=== PATIENT | female | born 1980 | race Caucasian/White ===

== ENCOUNTER 2025-08-06 09:02 | Emergency (ER) | payer OTHER, SELFPAY ==
[2025-08-06 09:09] VITALS: BP 157/85; PULSE 68; TEMP 36.8; O2SAT 98; BMI 32.9
--- NOTE | 2025-08-06 09:18 | ECG_ITS ---
The [facility] Test Date: 2025-08-06 Pat Name: VITO HAYES Department: Room: - Gender: Female Poker Supervisor: : 1980 Requested By: 1030 Order Number: [id number] Reading MD: CORI CARROLL M.D. Measurements Intervals [place] Rate: 74 P: 47 IA: 142 QRS: 71 QRSD: 86 T: 12 QT: 384 QTc: 412 Interpretive Statements 1100 Sinus rhythm 1102 Sinus arrhythmia [address] depression [address] & Tw[place] abnormality 9150 abnormal ECG No previous ECG available for comparison Electronically Signed On 08-06-2025 18:00:15 EDT by CORI CARROLL M.D.
--- NOTE | 2025-08-06 09:18 | ED_ITS ---
HPI HPI - General Adult General Chief complaint: Abdominal Pain Stated complaint: VOMITNG POST OP Time Seen by Provider: 08/06/25 09:05 Source: patient Mode of arrival: walk-in Limitations: no limitations History of Present Illness HPI narrative: 45-year-old female presented to the emergency department for nausea and vomiting. 1 week ago today she had laparoscopic appendectomy at another hospital. She states that this pain and this vomiting started today and she points to her epigastric area. She went to the hospital where she had her appendectomy but the wait was going to be too long so she left there. No hematemesis or fever. Related Data Home Medications ?Medication ?Instructions ?Recorded ?Confirmed buprenorphine 96 mg/0.27 mL mg subcut 08/06/25 solution,exten.rel.subcutaneous syringe (Brixadi Monthly) Allergies Allergy/AdvReac Type Severity Reaction Status Date / Time Penicillins Allergy Mild Rash Verified 08/06/25 09:09 Opioid HPI Opioid Management Most Recent Opioid Data: Last Pain Scale 10 Today, 13:27 Last MAR Pain Assessment Today, 13:27 Ur Phencyclidine Scrn, (NEGATIVE) Negative Today, 10:35 Review of Systems ROS Narrative A ten point review of systems is negative except as noted above. Exam Narrative Exam Narrative: Nurses note and vital signs reviewed and patient is not hypoxic. General:The patient appears uncomfortable. She is nearly continuously moving around on the bed. Skin:Warm, dry, no pallor noted.There is no rash noted. Head:Normocephalic, atraumatic Eye: Normal conjunctiva, no drainage Ears, Nose, Mouth, and Throat: oral mucosa is moist. Nares patent. Cardiovascular:Regular Rate and Rhythm Respiratory:Patient is in no distress, no accessory muscle use, lungs are clear to auscultation, no wheezing, rales or rhonchi Back:non-tender GI: Soft and nondistended. She has tenderness in her epigastric area and there are bruises in the lower abdomen near her laparoscopy sites. Musculoskeletal: The patient has no evidence of calf tenderness, no pitting edema, symmetrical pulses noted bilaterally Neurological:A&O, normal speech Psychiatric:Cooperative Constitutional Vital Signs, click to edit/add: Last Vital Signs Temp 98.2 F 08/06/25 09:09 Pulse 78 08/06/25 11:50 Resp 18 08/06/25 11:50 BP 116/66 09/24/25 11:50 Pulse Ox 98 08/06/25 11:50 O2 Del Method Room Air 08/06/25 09:09 Course Vital Signs Vital signs: Vital Signs Temperature 98.2 F 08/06/25 09:09 Pulse Rate 68 08/06/25 09:09 Respiratory Rate 24 H 08/06/25 09:09 Blood Pressure 157/85 H 08/06/25 09:09 Pulse Oximetry 98 08/06/25 09:09 Oxygen Delivery Method Room Air 08/06/25 09:09 Temperature 98.2 F 08/06/25 09:09 Pulse Rate 78 08/06/25 11:50 Respiratory Rate 18 08/06/25 11:50 Blood Pressure 116/66 08/06/25 11:50 Pulse Oximetry 98 08/06/25 11:50 Oxygen Delivery Method Room Air 08/06/25 09:09 Medical Decision Making MDM Narrative Medical decision making narrative: A 6 x 4 x 3 cm fluid collection with rim enhancement is noted in the pelvis per radiologist. I spoke to Dr. Morales, general surgery at [facility], and he has reviewed the CAT scan. He reports that the patient had a perforated appendix and that this fluid collection is most likely an abscess needs to be drained by interventional radiology. That procedure is not not done here at this hospital nor at [facility] and he is recommending transfer to [facility]. The patient is agreeable and stable for this and is being given IV Toradol and Zosyn. She is requesting no narcotics. The patient was informed also about the tube ligation clip but she states she found out about that about a year ago and is not concerned about it. She was advised that to prevent alternative control may be necessary. I have spoken to Dr. Hernandez, emergency physician at [facility] and he accepts the patient. She is agreeable and stable for transfer. Differential Diagnosis Differential Diagnosis: Postoperative pain, abscess, bowel perforation Lab Data Lab results reviewed: Yes I reviewed the patient's lab results Labs: Lab Results 08/06/25 08/06/25 Range/Units 09:30 10:35 WBC 10.7 (4.0-11.0) 10^3/uL RBC 3.75 L (4.20-5.40) 10^6/uL Hgb 11.6 L (12.0-16.0) g/dL Hct 35.3 L (36.0-48.0) % MCV 94.1 (81.0-99.0) fL MCH 30.9 (26.7-34.0) pg MCHC 32.9 (29.9-35.2) g/dL RDW 14.4 (11.0-15.0) % Plt Count 309 (150-450) 10^3/uL MPV 11.6 (9.5-13.5) fL Neut % (Auto) 74.0 (43.0-75.0) % Lymph % (Auto) 19.9 L (20.5-60.0) % [place] % (Auto) 3.9 (1.7-12.0) % Eos % (Auto) 0.8 L (0.9-7.0) % Baso % (Auto) 0.3 (0.2-2.0) % Neut # (Auto) 7.9 H (1.4-6.5) 10^3/uL Lymph # (Auto) 2.1 (1.2-3.8) 10^3/uL [place] # (Auto) 0.4 (0.3-0.8) 10^3/uL Eos # (Auto) 0.1 (0.0-0.7) 10^3/uL Baso # (Auto) 0.0 (0.0-0.1) 10^3/uL Abs Immat Gran (auto) 0.12 H (0.00-0.03) 10^3/uL Imm/Tot Granulo (auto) 1.1 H (0.0-0.5) % Sodium 141 (136-145) mmol/L Potassium 3.7 (3.5-5.1) mmol/L Chloride 103 (98-107) mmol/L Carbon Dioxide 27.8 (21.0-32.0) mmol/L Anion Gap 13.9 BUN 12.0 (7.0-18.0) mg/dL Creatinine 0.73 (0.55-1.02) mg/dL Est GFR ( Amer) >60 (>=60 mL/min/1.73m^2) Est GFR (Non-Af Amer) >60 (>=60 mL/min/1.73m^2) BUN/Creatinine Ratio 16.4 Glucose 121 H (74-106) mg/dL Calcium 9.0 (8.5-10.1) mg/dL Total Bilirubin 0.1 L (0.2-1.0) mg/dL Direct Bilirubin <0.1 (0.0-0.2) mg/dL AST 12 L (15-37) U/L ALT 20 (14-59) U/L Alkaline Phosphatase 71 (46-116) U/L Total Protein 7.6 (6.4-8.2) g/dL Albumin 3.0 L (3.4-5.0) g/dL Globulin 4.6 g/dL Albumin/Globulin Ratio 0.7 Amylase 58 (25-115) U/L Lipase 19.0 (16.0-77.0) U/L Urine Color Yellow (YELLOW) Urine Clarity Sl cloudy (CLEAR) Urine pH >=9.0 A (5.0-9.0) Ur Specific Institute 1.015 (1.005-1.025) Urine Protein 30 A (NEG/TRACE) mg/dL Urine Glucose (UA) Negative (NEGATIVE) mg/dL Urine Ketones Negative (NEGATIVE) mg/dL Urine Occult Blood Small A (NEGATIVE) Urine Nitrite Negative (NEGATIVE) Urine Bilirubin Negative (NEGATIVE) Urine Urobilinogen 0.2 (0.2-1.0) EU/dL Ur Leukocyte Esterase Negative (NEGATIVE) Urine RBC 0-2 (0-2) #/HPF Urine WBC 0-2 A (NONE SEEN) #/HPF Ur Squamous Epith Cells Few A (NONE/RARE) #/LPF Urine Crystals Seen A (None Seen) #/HPF Amorphous Sediment Moderate Urine Bacteria Trace A (NONE SEEN) #/HPF Urine Casts None seen (NONE SEEN) #/LPF Urine Mucus Trace A (NONE SEEN) Ur Culture Indicated? No Urine Opiates Screen Negative (NEGATIVE) Ur Buprenorphine Scrn Positive A (NEGATIVE) Ur Oxycodone Screen Negative (NEGATIVE) Urine Methadone Screen Negative (NEGATIVE) Ur Barbiturates Screen Negative (NEGATIVE) U Tricyclic Antidepress Negative (NEGATIVE) Ur Phencyclidine Scrn Negative (NEGATIVE) Ur Amphetamines Screen Negative (NEGATIVE) U Methamphetamines Scrn Negative (NEGATIVE) U Benzodiazepines Scrn Negative (NEGATIVE) Urine Cocaine Screen Negative (NEGATIVE) U Cannabinoids Screen Positive A (NEGATIVE) Imaging Data CT scan - abdomen: Radiologist's impression: ITS Impressions Abdomen/Pelvis CT 08/06/25 11:05 IMPRESSION: Postoperative changes suggestive of the patient's known history of appendectomy. There appears be a rim-enhancing fluid collection seen within the rectouterine space measuring approximately 6 x 4 x 3.1 cm. Consultation with the patient's surgeon regarding further management is suggested. No air bubbles are seen to suggest abscess. There appears to be dislodgment of the patient's left tubal ligation clip. Additional contraception methods may be needed. This is new compared to the prior CT study. Multiple prominent mesenteric and retroperitoneal lymph nodes presumably reactive. Attention on follow-up is suggested. Impression dictated by: Radu Bull Jr., D.O. 08/06/2025 11:28 AM Dictation Location: [place] [address] Electronically authenticated by: [id number] Y Date: 08/06/2025 11:28 Discharge Plan Discharge Chief Complaint: Abdominal Pain Clinical Impression: Abscess of pelvis Patient Disposition: [facility] Time of Disposition Decision: 13:12 Discharge Location: [facility] Condition: Fair Mode of Transportation: EMS
[2025-08-06 09:37] LABS: Hematocrit 35.3 % (36.0-48.0); Hemoglobin 11.6 g/dL (12.0-16.0); Immature Granulocytes Abs Auto 0.12 10^3/uL (0.00-0.03); Immature Granulocytes Pct Auto 1.1 % (0.0-0.5); Lymphocytes Absolute Auto 2.1 10^3/uL (1.2-3.8); Mean Corpuscular HGB Conc 32.9 g/dL (29.9-35.2); Mean Corpuscular Hemoglobin 30.9 pg (26.7-34.0); Mean Corpuscular Volume 94.1 fL (81.0-99.0); Platelet Count 309 10^3/uL (150-450); Red Blood Count 3.75 10^6/uL (4.20-5.40); White Blood Count 10.7 10^3/uL (4.0-11.0)
[2025-08-06] MEDS: 0.9 % SODIUM CHLORIDE 1,000 ML 1000 ML IV (09:39)
[2025-08-06] MEDS: HALOPERIDOL LACTATE 5 MG/ML VIAL IV (09:52)
[2025-08-06 09:54] LABS: Alanine Aminotransferase 20 U/L (14-59); Albumin Globulin Ratio 0.7; Albumin Level 3.0 g/dL (3.4-5.0); Alkaline Phosphatase 71 U/L (46-116); Amylase 58 U/L (25-115); Anion Gap 13.9; Aspartate Amino Transferase 12 U/L (15-37); Blood Urea Nitrogen 12.0 mg/dL (7.0-18.0); Calcium 9.0 mg/dL (8.5-10.1); Carbon Dioxide 27.8 mmol/L (21.0-32.0); Chloride 103 mmol/L (98-107); Estimated GFR (African America >60 (>=60 mL/min/1.73m^2); Estimated GFR (Non-African Ame >60 (>=60 mL/min/1.73m^2); Globulin 4.6 g/dL; Glucose 121 mg/dL (74-106); Lipase 19.0 U/L (16.0-77.0); Potassium 3.7 mmol/L (3.5-5.1); Sodium 141 mmol/L (136-145); Total Protein 7.6 g/dL (6.4-8.2)
--- OUTSIDE RECORDS SUMMARY | 2025-08-06 10:23 | XMS_ITS | Encounter Summary ---
Author Organization [facility] Address [address] [place] [address] Phone Care Team Providers Care Java Development Manager Name Role Phone Unavailable Primary Care Provider Unavailabl e Encounter Details Date Type Department Care Team (Late st Contact Info) Description 06/15/2023 Patient Risk Score ACO Care Management [address] [place] [address] Social History Tobacco Use Types Packs/Day Years Used Date Smoking Tobacco: Never Assessed Comments Unknown Sex and Gender Information Value Date Recorded Sex Assigned at Not on file Legal Sex Female 7:51 PM EST Gender Identity Not on file Sexual Orientation Not on file documented as of this encounter Plan of Treatment Not on file documented as of this encounter Visit Diagnoses Not on filedocumented in this encounter
--- OUTSIDE RECORDS SUMMARY | 2025-08-06 10:23 | XMS_ITS | Clinical Summary ---
Author Organization [facility] Healthcare Address [address] [place] [address] Care Team Providers Care Strand Forming Machine Operator Name Role Phone Unavailable Primary Care Provider Unavailabl e Allergies No known active allergies Medications Flaxseed, Linseed, (Flax Seed Oil) 1000 MG capsule Refill(s) 0 5 Active buprenorphine-nal oxone (Suboxone) 2-0.5 MG per sublingual film Suboxone Acti ve promethazine (Phenergan) 25 MG suppository Insert 25 mg into the rectum 4 Active oxybutynin XL (Ditropan-XL) 5 MG 24 hr tablet Take 5 mg by mouth Daily 5 Active Colace 100 MG capsule Take 100 mg by mouth 4 Active famotidine (Pepcid) 20 MG tablet Take 20 mg by mouth in the morning and 20 mg before bedtime. 4 Active gabapentin (Neurontin) 100 MG capsule Take 100 mg by mouth in the morning and 100 mg in the evening and 100 mg before bedtime. Active ibuprofen 600 MG tablet Take 1 tablet by mouth every 8 (eight) hours 4 Active MAGNESIUM BISGLYCINATE PO Take by mouth 5 Active Social History Tobacco Use Types Packs/Day Years Used Date Smoking Tobacco: Every Day Cigarettes Smokeless Tobacco: Current Alcohol Use Standard Drinks/Week Comments Never 0 (1 standard drink = 0.6 oz pur e alcohol) Comments Unknown Sex and Gender Information Value Date Recorded Sex Assigned at Not on file Legal Sex Female 6:49 PM EDT Gender Identity Not on file Sexual Orientation Not on file Last Filed Vital Signs Vital Sign Reading Time Taken Comments Blood Pressure - - Pulse 104 01/15/2025 11:50 AM EST Temperature - - Respiratory Rate 18 01/15/2025 11:50 AM EST Oxygen Saturation 99% 01/15/2025 11:50 AM EST Inhaled Oxygen Concentration - - Weight 102 kg (224 lb) 01/15/2025 11:50 AM EST Height 167.6 cm (5' 6 ) 01/15/2025 11:50 AM EST Body Mass Index 36.15 01/15/2025 11:50 AM EST Plan of Treatment Not on file Insurance [employer]
--- OUTSIDE RECORDS SUMMARY | 2025-08-06 10:23 | XMS_ITS | Encounter Summary ---
Author Organization [facility] Address [address] [place] [address] Phone Care Team Providers Care Drafter Automotive Design Name Role Phone Unavailable Primary Care Provider Unavailabl e Encounter Details Date Type Department Care Team (Late st Contact Info) Description 07/16/2023 Patient Risk Score ACO Care Management [address] [place] [address] Social History Tobacco Use Types [...]
--- OUTSIDE RECORDS SUMMARY | 2025-08-06 10:23 | XMS_ITS | Encounter Summary ---
Author Organization [facility] Address [address] [place] [address] Phone Care Team Providers Care Hat Maker Name Role Phone Unavailable Primary Care Provider Unavailabl e Encounter Details Date Type Department Care Team (Late st Contact Info) Description 07/30/2025 Orders Only [facility] [address] [place] [address] Dwight Ruth, DO [address] [place] [address] Social History Tobacco Use Types Packs/Day Years Used Date Smoking Tobacco: Never Assessed Comments Unknown Sex and Gender Information Value Date Recorded Sex Assigned at Not on file Legal Sex Female 7:51 PM EST Gender Identity Not on file Sexual Orientation Not on file documented as of this encounter Plan of Treatment Not on file documented as of this encounter Procedures Procedure Name Priority Date/Time Associated Diagnosis Comments CT ABDOMEN PELVIS W IV CONTRAST 07/30/2025 4:16 AM EDT NON[facility] H[facility] B HCG QUAL Routine 07/30/2025 3:50 AM EDT [facility] EXTRA BLUE Routine 07/30/2025 2:07 AM EDT [facility] CBC W/ AUTO DIFF Routine 07/30/2025 2:07 AM EDT [facility] H[facility] BMP Routine 07/30/2025 2:07 AM EDT [facility] H[facility] LIPASE LEVEL Routine 07/30/2025 2:07 AM EDT [facility] H[facility] HEP FUNC PANEL Routine 07/30/2025 2:07 AM EDT [facility] H[facility] EGFR Routine 07/30/2025 2:07 AM EDT documented in this encounter Results * CT abdomen pelvis w IV contrast (07/30/2025 4:16 AM EDT) Anatomical Region Laterality Modality Abdominal, Body Computed Tomogra phy 07/30/2025 4:16 AM EDT Narrative 07/30/2025 12:16 PM EDT Exam Date/Time: 07/30/2025 04:37 EDT Reason for Exam: ABDOMINAL PAIN, ACUTE, NONLOCALIZED;Other (please specify) Report IMPRESSION: ACUTE APPENDICITIS. EXAM: CT Abdomen/Pelvis w/ Contrast DATE: 07/30/2025 4:16 AM CLINICAL HISTORY: ABDOMINAL PAIN, ACUTE, NONLOCALIZED. Technologist Comments: c/o abd pain, vomiting, diarrhea, and back pain starting tonight an hour SUPERINTENDENT REFUSE DISPOSAL. States she had intermittent abd pains on the right side thoughout the day but they would go away. Pt restless on arrival. hx tubal ligation. pt refused to bring arms up. COMPARISON: 08/08/2024. TECHNIQUE: Spiral imaging was obtained of the abdomen and pelvis after the uneventful infusion of intravenous contrast. All CT scans at this facility use dose modulation, iterative reconstruction, and/or weight based dosing when appropriate to reduce radiation dose to as low as reasonably achievable. Unless otherwise stated, incidental findings identified in this report do not require routine follow-up imaging. FINDINGS: Liver: Borderline enlarged with mild fatty infiltration. No suspicious mass or lesion. Biliary: The gallbladder is unremarkable. No abnormal biliary ductal dilatation. Pancreas: No suspicious mass, organized fluid collection, surrounding inflammation, or abnormal pancreatic ductal dilatation. Spleen: Within normal limits. Adrenals: Stable approximately 3 cm left adrenal adenoma. The right adrenal gland appears within normal limits. Kidneys: No hydronephrosis, significant urinary tract calculi, or suspicious mass. GI tract: The appendix is distended to approximately 1.3 cm with wall thickening, surrounding fluid and containing several appendicoliths, consistent with acute appendicitis. No other abnormal dilation, wall thickening, or suspicious mass. Lymph nodes: No pathologically enlarged lymph nodes. Vasculature: No aneurysm or dissection. Mild calcified atherosclerotic plaquing. Mesentery/peritoneum/retroperitoneum: Small volume low-density free fluid and inflammation in the pelvis, which is probably reactive. No organized fluid collection, extraluminal gas, or suspicious mass. Pelvis: The nearly decompressed urinary bladder is otherwise unremarkable. Bilateral tubal ligation clips in expected position. Otherwise unremarkable-appearing uterus. The adnexa appear within normal limits. Musculoskeletal: No acute osseous findings identified. Mild to moderate degenerative Report changes of the mid to lower lumbar levels with approximately 3 mm of anterolisthesis of L4 over L5 and retrolisthesis of L5 over S1, not significantly changed from 08/08/2024. Lower thorax: Noncontributory. GFR (mL/min/1/73m2) na Contrast: Isovue 300 Contrast amount in ml's: 100.00 Rectal Contrast Given? No Ordering Provider: Dwight Ruth FINAL REPORT Dictated: 07/30/2025 12:13 pm Antonio Cortez MD Signed (Electronic Signature): 07/30/2025 12:13 pm Signed by: Antonio Cortez MD Transcribed by: BRETT Technologist: JOHANNE us Dwight Ruth DO IMG CT PROCEDURES Final Result * [facility] B hCG Qual (07/30/2025 3:50 AM EDT) Pathologist [facility] NON-[facility] HIE Beta hCG Ql NEGATIVE [facility] Lab- Blood 07/30/2025 3 :50 AM EDT us Dwight Ruth DO LAB BLOOD ORDERABLES Final Resu lt [facility] [address] [place] [address], [place] * (ABNORMAL) [facility] H[facility] CBC w/ Auto Diff (07/30/2025 2:07 AM EDT) [facility] HIE WBC 12.4(H) 4.0 - 11.0 E9/L [facility] NON-[facility] H[facility] RBC 4.4 4.3 - 5.9 E12/L [facility] HIE HGB 13.6 12.0 - 16.0 gm/dL [facility] HIE HCT 40.2 34.0 - 46.0 % [facility] HIE RDW 14.7(H) 10.9 - 14.2 % [facility] HIE MCH 31.0 27.0 - 34.0 pg [facility] NON-[facility] HIE MCHC 33.8 31.4 - 36.0 gm/dL [facility] HIE MCV 91.9 80.0 - 100.0 fL [facility] HIE MPV 11.4(H) 6.4 - 10.8 fL [facility] NON-[facility] HIE PLATELET 195.0 150.0 - 500.0 E9/L [facility] HIE NEUTRO AUTO 59.3 36.0 - 75.0 % [facility] LYMPH AUTO 32.7 14.0 - 50.0 % [facility] MONO AUTO 6.6 4.0 - 14.0 % [facility] EOS AUTO 0.9 0.0 - 8.0 % [facility] HIE BASOPHIL AUTO 0.5 0.0 - 2.0 % [facility] NEUTRO ABSOLUTE 7.4 2.0 - 7.5 E9/L [facility] LYMPH ABSOLUTE 4.1(H) 1.0 - 4.0 E9/L [facility] MONO ABSOLUTE 0.8 0.2 - 1.0 E9/L [facility] EOS ABSOLUTE 0.1 0.0 - 0.5 E9/L [facility] BASOPHIL ABSOLUTE 0.1 0.0 - 0.2 E9/L [facility] H[facility] RBC MORPH NORMAL [facility] NON-[facility] HIE LARGE PLT PRESENT [facility] Lab- Blood 07/30/2025 2 :07 AM EDT us Dwight uRth DO LAB BLOOD ORDERABLES Final Resu lt Performing Organization Address City/[facility]/ZIP Co de Phone Number [facility] [address] [place] [address], [place] * [facility] eGFR (07/30/2025 2:07 AM EDT) Pathologist [facility] H[facility] EGFR 92 >=59 mL/min/1.7 3 m2 [facility] Lab- Blood 07/30/2025 2 :07 AM EDT Dwight Lizama Faraz DO LAB BLOOD ORDERABLES Final Resu lt Performing Organization Address [facility] [place] [address], [place] * (ABNORMAL) [facility] Lipase Level (07/30/2025 2:07 AM EDT) Pathologist [facility] HIE LIPASE LVL 5(L) 13 - 58 unit/L [facility] Lab- Blood 07/30/2025 2 :07 AM EDT Dwight Lizama Faraz LAB BLOOD ORDERABLES Final Resu lt Performing Organization Address [facility] [place] [address], [place] * [facility] Hep Func Panel (07/30/2025 2:07 AM EDT) Pathologist [facility] NON-[facility] H[facility] ALT 13 6 - 46 Int._Unit/ L [facility] NON-[facility] HIE AST 15 5 - 43 Int._Unit/ L [facility] NON-[facility] HIE ALBUMIN LVL 4.3 3.3 - 5.0 gm/dL [facility] HIE GLOBULIN 3.3 1.4 - 4.0 gm/dL [facility] NON-[facility] H[facility] A/G RATIO 1.3 1.1 - 2.2 [facility] NON-[facility] H[facility] ALK PHOS 69 21 - 98 Int._Unit/ L [facility] NON-[facility] HIE BILI DIRECT 0.1 0.0 - 0.4 mg/dL [facility] NON[facility] HIE BILI INDIRECT 0.4 0.1 - 0.9 mg/dL [facility] HIE BILI TOTAL 0.5 0.0 - 1.1 mg/dL [facility] H[facility] TOTAL PROTEIN 7.6 6.0 - 7.8 gm/dL [facility] Lab- Blood 07/30/2025 2 :07 AM EDT us Dwight Ruth DO LAB BLOOD ORDERABLES Final Resu lt [facility] [address] [place] [address], [place] * [facility] BMP (07/30/2025 2:07 AM EDT) [facility] GLUCOSE LVL 133 55 - 199 mg/dL [facility] H[facility] BUN 9 5 - 21 mg/dL [facility] H[facility] CREATININE 0.8 0.5 - 1.3 mg/dL [facility] BUN/CREAT RATIO 11 10 - 20 No Units [facility] NON[facility] HIE CALCIUM LVL 9.4 8.9 - 11.1 mg/dL [facility] H[facility] SODIUM LVL 136 135 - 145 mmol/L [facility] NON[facility] H[facility] POTASSIUM LVL 3.6 3.5 - 5.3 mmol/L [facility] H[facility] CHLORIDE 102 101 - 111 mmol/L [facility] NON-[facility] HIE CO2 24 21 - 31 mmol/L [facility] NON[facility] HIE AGAP 14 6 - 16 mEq/L [facility] Lab- Blood 07/30/2025 2 :07 AM EDT us Dwight Ruth DO LAB BLOOD ORDERABLES Final Resu lt [facility] [address] [place] [address], [place] * [facility] EXTRA BLUE (07/30/2025 2:07 AM EDT) [facility] H[facility] TUBE COLLECTED PLASMA Yes [facility] Lab- Blood 07/30/2025 2 :07 AM EDT us Dwight Ruth DO LAB BLOOD ORDERABLES Final Resu lt Performing Organization Address City/[facility]/ZIP Co de Phone Number [facility] [address] [place] [address], [place] documented in this encounter Visit Diagnoses Not on filedocumented in this encounter
--- OUTSIDE RECORDS SUMMARY | 2025-08-06 10:23 | XMS_ITS | Clinical Summary ---
Author Organization [facility] Address [address] [place] [id number] Care Team Providers Care Formula Technician Name Role Phone Pedro Garcia DO Primary Care Provider + Allergies No known active allergies Medications Buprenorphine-n alOXone (SUBOXONE) 8-2 mg film Dissolve under the tongue once daily. Active PHENTERMINE HCL (ADIPEX-P ORAL) Take by mouth once daily. Active oxyCODONE-aceta minophen (PERCOCET) 10-325 mg tablet Take 1 tablet by mouth every 6 hours as needed for Pain. 25 tablet 0 03/19/2015 Active Active Problems Problem Noted Date Diagnosed Date Carpal tunnel syndrome 02/02/2015 Social History Tobacco Use Types Packs/Day Years Used Date Smoking Tobacco: Never Assessed Comments Unknown Sex and Gender Information Value Date Recorded Sex Assigned at Not on file Legal Sex Female 8:29 AM EDT Gender Identity Not on file Sexual Orientation Not on file Last Filed Vital Signs Vital Sign Reading Time Taken Comments Blood Pressure 132/69 03/19/2015 11:36 AM EDT Pulse 90 03/19/2015 11:36 AM EDT Temperature 36.2 C (97.2 F) 03/19/2015 11:02 AM EDT Respiratory Rate 16 03/19/2015 11:36 AM EDT Oxygen Saturation 98% 03/19/2015 11:36 AM EDT Inhaled Oxygen Concentration - - Weight 106.6 kg (235 lb) 03/19/2015 10:17 AM EDT Height 170.2 cm (5' 7 ) 03/19/2015 10:17 AM EDT Body Mass Index 36.81 03/19/2015 10:17 AM EDT Plan of Treatment Health Maintenance Due Date Last Done Comments Anxiety Screening 1997 Depression Screening 1997 HIV Screening 1997 Hepatitis C Screening 1997 DTaP,Tdap,Td Vaccine (1 - Tdap) 1998 Hepatitis B Vaccine (1 of 3 - 19+ 3-dose series) 1998 Cervical Cancer Screening [address] Colonography 2024 Cologuard (FIT-DNA) 2024 Colonoscopy 2024 Colorectal Cancer Screening 2024 Fecal Occult Blood 2024 Lipid Screening 2024 Sigmoidoscopy 2024 Influenza Vaccine (#1) 2025 07/08/2019, 2016 Diabetes Screening 08/08/2027 08/08/2024 Insurance [employer] Member Subscriber Plan / Payer (Ef fective 2022-Present) Name:Paola Zavala Relation to Subscriber:Self Name:Paola Zavala Payer ID:[id number] (NAIC) Group ID:[id number] Type:Medicaid Address: [place] [id number] Care Teams Formula Technician Relationship Specialty Start Date End Date Pedro Garcia DO PCP - General Family Medicine 03/12/15
--- OUTSIDE RECORDS SUMMARY | 2025-08-06 10:23 | XMS_ITS | Encounter Summary ---
Author Organization [facility] Address [address] [place] [address] Phone Care Team Providers Care Fiction And Nonfiction Prose Writer Name Role Phone Unavailable Primary Care Provider Unavailabl e Encounter Details Date Type Department Care Team (Late st Contact Info) Description 05/15/2023 Patient Risk Score ACO Care Management [address] [place] [address] Social History Tobacco Use Types [...]
[2025-08-06 10:45] LABS: Glucose Urine UA NEGATIVE (NEGATIVE)
[2025-08-06 10:55] LABS: Cannabinoid Screen Urine POSITIVE (NEGATIVE); Methamphetamines Screen Urine NEGATIVE (NEGATIVE); Tricyclic Antidepressant Urine NEGATIVE (NEGATIVE)
[2025-08-06 10:57] VITALS: BP 159/101; PULSE 84
[2025-08-06 11:01] LABS: Cast Seen? NONE SEEN #/LPF (NONE SEEN); Crystals Seen? Seen #/HPF (None Seen); Urine Culture Indicated NO
--- NOTE | 2025-08-06 11:05 | CT_ITS ---
The [address] [address] Patient Name: VITO HAYES MRN: [id number] date: 1980 Sex: F Assigned Patient Location: ED.MAIN Current Patient Location: ED.MAIN Accession/Order Number: [id number] Exam Date: 08/06/2025 10:55 Report Date: 08/06/2025 11:28 At the request of: JOSE PHILLIPS MD Procedure: CT abdomen pelvis w con CT ABDOMEN AND PELVIS WITH INTRAVENOUS CONTRAST: CLINICAL HISTORY: Epigastric pain, laparoscopic appy 1 week ago COMPARISON: CT abdomen and pelvis 07/30/2025 TECHNIQUE: Spiral images were obtained through the abdomen and pelvis following the administration of intravenous contrast. This CT exam was performed using one or more following dose reduction techniques: Automated exposure control, adjustment of the mA and/or kV according to patient size, or use of iterative reconstruction technique. FINDINGS: Lung Bases: [Respiratory motion without focal abnormality.] Organs:Liver gallbladder portal vein pancreas spleen and right adrenal gland appears unremarkable. Presumed left adrenal adenoma, unchanged. No enhancing renal mass or hydronephrosis. Abdominal aorta appears normal in caliber.[ GI: Stomach is grossly unremarkable. Small bowel appears nondilated. Presumed postoperative changes suggestive of appendectomy. No acute colonic abnormality.[ Pelvis:[A rim-enhancing fluid collection is noted involving the rectouterine space measuring approximately 6.0 x 4.0 x 3.1 cm.] No air bubbles are identified. Follicular changes are seen involving the ovaries. Tubal ligation clips are present the left which appears dislodged projecting just anterior to the uterus. Peritoneum/Retroperitoneum:Multiple prominent mesenteric and retroperitoneal lymph nodes without pathological enlargement. No free air.[ Abd wall/Bones:Abdominal wall demonstrates no acute findings. Osseous structures demonstrate degenerative change.[ CT/CT abdomen pelvis w con IMPRESSION: Postoperative changes suggestive of the patient's known history of appendectomy. There appears be a rim-enhancing fluid collection seen within the rectouterine space measuring approximately 6 x 4 x 3.1 cm. Consultation with the patient's surgeon regarding further management is suggested. No air bubbles are seen to suggest abscess. There appears to be dislodgment of the patient's left tubal ligation clip. Additional contraception methods may be needed. This is new compared to the prior CT study. Multiple prominent mesenteric and retroperitoneal lymph nodes presumably reactive. Attention on follow-up is suggested. Impression dictated by: Radu Bull Jr., D.O. 08/06/2025 11:28 AM Dictation Location: [place] [id number] Electronically authenticated by: [id number] Y Date: 08/06/2025 11:28
[2025-08-06 11:50] VITALS: BP 116/66; PULSE 78; O2SAT 98
[2025-08-06] MEDS: CIPROFLOXACIN IN 5 % DEXTROSE 400 MG/200 ML PREMIX 200 MG IV (13:25)
[2025-08-06] MEDS: KETOROLAC TROMETHAMINE 30 MG/ML VIAL IVP (13:27)
[2025-08-06] MEDS: METRONIDAZOLE/SODIUM CHLORIDE 500 MG/100 ML PREMIX 100 MG IV (14:26)
[2025-08-06 14:50] VITALS: BP 128/76; PULSE 68; TEMP 37.2; O2SAT 96
--- NOTE | 2025-08-06 15:00 | PC.NURSE ---
[facility] here for pt transport, report given to Liz BRODY B
== END 2025-08-06 15:06 | disposition short-term general hospital (02) ==
PROVIDERS: Emergency Provider Emergency Medicine; PCP Family Medicine
DX: T81.49XA Infection following a procedure, other surgical site, initial encounter (principal); Z90.49 Acquired absence of other specified parts of digestive tract
CPT/HCPCS: 36415; 74177; 80048; 80076; 80307; 81001; 82150; 83690; 85025; 93005; 96361; 96365; 96367; 96375; 99285; J0744; J1630; J1836; J1885; J2405; Q9967